=== PATIENT | male | born 2000 | race Caucasian/White ===

== ENCOUNTER 2022-06-06 08:01 | Outpatient (CLI) | payer BC, OTHER | END 2022-06-06 08:02 | disposition home or self-care (01) | LOC: BICULT 08:01 | PROVIDERS: ATTEND Internal Medicine Gastroenterology | DX: K21.9 Gastro-esophageal reflux disease without esophagitis (principal); R10.13 Epigastric pain | CPT/HCPCS: 76705 ==

== ENCOUNTER → 2023-05-10 | Day surgery (SDC) | payer BC | LOC: SDC 13:54 | PROVIDERS: ATTEND Internal Medicine Gastroenterology | PROC: 4A1B78Z Monitoring of Gastrointestinal Motility, Via Natural or Artificial Opening (ICD-10-PCS; principal; 2023-05-10) | DX: K21.9 Gastro-esophageal reflux disease without esophagitis (principal) | CPT/HCPCS: 91034 ==